=== PATIENT | female | born 1960 | race Asian ===

== ENCOUNTER → 2016-08-10 | Outpatient (CLI) | payer MEDICAID ==
--- NOTE | 2016-08-10 12:05 | DX ---
Esophagram History: 55-year-old with difficulty swallowing/dysphagia, R13.19. Comparison: None available. Technique: Double contrast esophagram is performed with thin and thick barium. The exam was performed with the assistance of an substation engineer. Findings: Swallowing is grossly normal with symmetric appearance of the valleculae and piriform sinus es. Scattered air bubbles are present. Esophageal motility and distensibility are normal. Felinizatio n of the esophagus is noted. The esophageal mucosal pattern appears normal. There is no hiatal hernia . No reflux is identified. A 13-mm barium tablet passed without difficulty. 1.9 minutes of fluoroscopy were utilized. Dose= 32.4 mGy. Impression: Felinization of the esophagus, which can be seen with reflux, although no reflux was obse rved during intermittent fluoroscopy. Otherwise normal esophagram.
== END ==
LOC: FIMAGING 08:39
PROVIDERS: ATTEND Physician Assistant
DX: R13.19 Other dysphagia (principal)

== ENCOUNTER → 2017-01-25 | Outpatient (CLI) | payer MEDICAID | LOC: FIMAGING 11:33 | PROVIDERS: ATTEND Family Medicine | DX: Z12.31 Encounter for screening mammogram for malignant neoplasm of breast (principal) | CPT/HCPCS: G0202 ==

== ENCOUNTER → 2017-09-11 | Outpatient (CLI) | payer MEDICAID | LOC: FIMAGING 11:36 | PROVIDERS: ATTEND Family Medicine | DX: M53.3 Sacrococcygeal disorders, not elsewhere classified (principal); M41.86 Other forms of scoliosis, lumbar region; K59.00 Constipation, unspecified ==